=== PATIENT | female | born 1975 | race Caucasian/White ===

== ENCOUNTER 2022-04-28 02:39 | Day surgery (SDC) | payer OTHER, SELFPAY ==
[2022-04-18 14:31] VITALS: BMI 37.1
--- NOTE | 2022-04-18 14:40 | PC.NURSE ---
Report to the Outpatient Waiting Room, entrance under the green pavilion located off [facility], at time 0715 on date 04/28/22. OR Time: 0915. - You and your visitor will be asked a series of questions to screen for COVID 19 for your protection. - Only one visitor is allowed at this time. - The patient visitor is requested to leave or wait in car when not with patient. - A mask is required within the hospital. Patients may have clear liquids (water, carbonated beverages, clear teas, apple juice) until 3 hours prior to surgery with a maximum of 20 ounces. - No food from midnight until time of surgery Take the following medications with a SIP of water the morning of surgery: EFFEXOR Medications to discontinue per physician: VITAMINS/SUPPLEMENTS Date to take last dose: 04/24/22 Please no make-up, nail kenyan, hairspray, perfume, deodorant, or body powder the day of surgery. No jewelry (including any body piercings) or valuables the day of surgery, leave them at home. Please take a shower or bath the night before, or the morning of, surgery with an antibacterial soap. Wear comfortable, loose fitting clothing. - Jewelry must be removed prior to entering the operating room. Rings and piercings that are not removed may be cut off. - The hospital will not accept responsibility for valuables. - Please leave all valuables, including medications, at home the day of surgery. If you are going home after surgery, a licensed driver service technician must drive you home. - NO public transportation without another adult. - We recommend that an adult stay with you for 24 hours following discharge. - We also recommend that you do not drive, make important decision, drink alcoholic beverages, or take any drugs that were not prescribed by your health care provider for at least 24 hours after your discharge time. Follow any additional instructions given to you from your surgeon. If you or anyone in your household have experienced Covid symptoms in the past week, please notify your surgeon or the nurse liaison at the phone number below for possible testing. Telephone instructions given to PT - PORSHA HOWELL and asked if any additional questions and then verbalized understanding. Patient advised to call surgeon office or pre surgery nurse liaison [phone] if any additional questions.
[2022-04-28] VITALS (7 sets, daily range): BP systolic 118–147; BP diastolic 50–90; PULSE 59–96; RESP 12–16; TEMP 36.7–37.2; O2SAT 100; BMI 37.3
--- NOTE | 2022-04-28 07:32 | P.HP_ITS ---
History of Present Illness History of Present Illness Consent: Risks, benefits, and alternatives have been discussed and questions answered. Patient agrees to proceed with procedure. Chief complaint: desires sterilization Narrative: Lourdes Grant is a 46 year old female with completed her childbearing and is requesting permanent sterilization. Plan is to proceed with laparoscopic bilateral tubal ligation with Falope rings. Risks of infection, bleeding, injury to internal organs, and tubal failure with increased ectopic were reviewed. patient's questions were answered. Patient voices understanding and agrees to proceed. Review of Systems Review of Systems: not repeated day of surgery; patient states no changes in status [facility] Past Medical History Medical History (Updated 04/28/22 @ 07:36 by Astrid Rincon MD) Anxiety Depression Hypothyroid prior to gastric sleeve (normal spontaneous vaginal delivery) x2 in 1994 and 1995 Surgical History Surgical History (Updated 04/28/22 @ 07:35 by Astrid Rincon MD) History of x1 in 2006 History of weight loss surgery gastric sleeve 2017 Social History Social History Smoking packs per day: 0.5 Smoking cigarettes per day: 10.0 Years smoked: 20 Smoking pack-years: 10.00 Smoking status: Current every day smoker Tobacco type: cigarettes Alcohol intake: current Drinks per week: 10 Substance use: never Substance use type: does not use Living arrangements: with family Additional living arrangements comments: CHILDREN Spiritual care concerns: No Meds Home Medications and Allergies Home Medications Medication Instructions Recorded Confirmed Type cholecalciferol (vitamin D3) 125 125 mcg PO DAILY 04/18/22 04/18/22 History mcg (5,000 unit) tablet (Vitamin D3) fluticasone propionate 50 1 spray intranasal Q12H 04/18/22 04/18/22 History mcg/actuation nasal spray,suspension levocetirizine 5 mg tablet (Xyzal) 5 mg PO DAILY 04/18/22 04/18/22 History multivitamin 1 tablet PO DAILY 04/18/22 04/18/22 History venlafaxine 150 mg 150 mg PO DAILY 04/18/22 04/18/22 History capsule,extended release 24 hr (Effexor XR) vitamin B complex 1 tablet PO DAILY 04/18/22 04/18/22 History Allergies Allergy/AdvReac Type Severity Reaction Status Date / Time No Known Allergies Allergy Verified 04/18/22 14:27 Exam Const: General: healthy appearing and alert Orientation/consciousness: patient oriented x3 GI: GI Palp: Yes Soft to palpation, No Tenderness to palpation present (GI) and No Palpable mass present : External Female Exam: normal external appearance Speculum Exam - Vagina: normal appearance of the vagina and normal vaginal discharge Speculum Exam - Cervix: normal appearance of the cervix Bimanual exam- vagina & uterus: uterine size normal and consistency normal Bimanual Exam- Adnexa, ot her: normal adnexae and No adnexal tenderness Neuro: General: patient oriented x3 Assessment and Plan Assessment and plan (1) Encounter for sterilization: Code(s): Z30.2 - Encounter for sterilization Status: Acute Assessment and Plan: plan to proceed with laparoscopic bilateral tubal ligation
--- NOTE | 2022-04-28 07:32 | WPDHPUPDATE1 ---
History and Physical Update Update Date/Time: 04/28/22 07:32 History and Physical has been reviewed, including an updated exam of the patient. There are NO changes in the patient's condition. Risks, benefits, and alternatives have been discussed and questions answered. Patient agrees to proceed with procedure.
--- NOTE | 2022-04-28 08:02 | P.PNAN_ITS ---
Anes - Initial Pre Proc Eval Procedure: Operation Date: 04/28/22 09:15 Proposed Procedures p Laparoscopic Bilateral Tubal Ligation with Fallopian Rings - Astrid Rincon MD Date/Time: 04/28/22 08:02 Surgeon: Astrid Rincon MD Pre Op Diagnosis: desires sterilization Patient Data Age: 46 Gender: F Height: 1.68 m Weight: 105.1 kg Last Vital Signs Temp 36.7 C 04/28/22 07:46 Pulse 65 04/28/22 07:46 Resp 16 04/28/22 07:46 BP 118/81 04/28/22 07:46 Pulse Ox 100 04/28/22 07:46 O2 Del Method Room Air 04/28/22 07:46 Allergies Allergy/AdvReac Type Severity Reaction Status Date / Time No Known Allergies Allergy Verified 04/28/22 07:50 Home Medications Medication Instructions Recorded Confirmed Type cholecalciferol (vitamin D3) 125 125 mcg PO DAILY 04/18/22 04/28/22 History mcg (5,000 unit) tablet (Vitamin D3) fluticasone propionate 50 1 spray intranasal Q12H 04/18/22 04/28/22 History mcg/actuation nasal spray,suspension levocetirizine 5 mg tablet (Xyzal) 5 mg PO DAILY 04/18/22 04/28/22 History multivitamin 1 tablet PO DAILY 04/18/22 04/28/22 History venlafaxine 150 mg 150 mg PO DAILY 04/18/22 04/28/22 History capsule,extended release 24 hr (Effexor XR) vitamin B complex 1 tablet PO DAILY 04/18/22 04/28/22 History Patient hx anesthesia problems: none Family hx anesthesia problems: none Results Review: All pre-operative results and documents have been reviewed as part of the pre- operative evaluation. [facility] Past Medical History Medical History Anxiety Depression Hypothyroid prior to gastric sleeve (normal spontaneous vaginal delivery) x2 in 1994 and 1995 Surgical History Surgical History History of x1 in 2006 History of weight loss surgery gastric sleeve 2018 Social History Social History Smoking packs per day: 0.5 Smoking cigarettes per day: 10.0 Years smoked: 20 Smoking pack-years: 10.00 Smoking status: Current every day smoker Tobacco type: cigarettes Alcohol intake: current Drinks per week: 10 Substance use: never Substance use type: does not use Living arrangements: with family Additional living arrangements comments: CHILDREN Spiritual care concerns: No Anes - Eval Final PreProcedure Day of Procedure 04/28/22 08:02 Patient weight: obese Heart: regular rate and rhythm Lungs: clear to auscultation Neurological: alert and oriented Last oral intake: >/= 8 hours ASA classification: III Emergent: no Anesthetic plan: proceed Anesthesia type and monitoring: general ETT and standard monitoring Results Review: All pre-operative results and documents have been reviewed as part of the pre- operative evaluation. Informed Consent: The patient's anesthetic plan and its attendant risks and benefits were discussed with the patient/family/POA. Questions were solicited and answers provided to the satisfaction of the patient/family/POA.
[2022-04-28] MEDS: KETOROLAC 15 MG/ML VIAL (*BKC) IV PUSH (08:04)
[2022-04-28] MEDS: LACTATED RINGERS 1,000 ML 30 ML IV CONT ×2 (08:04→09:42)
[2022-04-28] MEDS: ACETAMINOPHEN 500 MG TABLET 1000 MG PO (08:04)
--- NOTE | 2022-04-28 09:29 | W.PM.PROC2 ---
Procedure Note - Detailed Date of Procedure 04/28/22 Pre-op Diagnosis desires sterilization Post-op Diagnosis Same Procedure Performed Laparoscopic bilateral tubal ligation with Falope rings Surgeon Astrid Rincon MD Anesthesia General Findings Cervix is deep set. Uterus, tubes, and ovaries appear grossly Description of Procedure The patient is taken to the operating room and placed under anesthesia in the dorsal lithotomy position. She was prepped and draped in the usual sterile fashion. [place] speculum was placed in the vagina and the cervix was noted to be very deep. The cervix is barely visible and grasped on the anterior lip with a tenaculum. It is able to be pulled into the speculum. The acorn manipulator was placed. physical laboratory assistant previously drained the bladder with red rubber catheter. The attention was then turned to the abdomen where a vertical skin incision was made at the base of the umbilicus. The abdomen is tented with towel clamps and the Veress needle placed. The short Veress needle was noted to not reach the peritoneum. Long Veress needle was opened and placed and water drop test is normal opening patient pressure was 5mmHg. 5L of CO2 are required to obtain patient pressure of 15mmHg. The Veress needle was then removed and the short trocar placed and noted to not reach peritoneum. The long trocar 5mm placed again while tenting with towel clamps. Intra-abdominal placement was confirmed with the laparoscope. The patient was placed in Trendelenburg and an 8mm skin incision is made at the patient's prior incision. The 8mm trocar was attempted to be placed in this location and was noted to be too short. Approximately 4cm below the incision a transverse 8mm incision is made with a scalpel. While tenting with towel clamps the 8mm trocars placed under direct visualization. The blunt probe was used to bring the tubes into view. The ring applicator is placed and a good loop of tube brought into the applicator and the ring applied to the left tube. Identical procedure was performed on the right side. Picture documentation was taken and all instruments are removed. Pneumoperitoneum was reduced. Skin incisions were closed using 4-0 nylon in an interrupted fashion. Vaginal instruments are removed. Sponge, needle, and instrument counts are correct per the OR staff. Estimated Blood Loss 5 Drains No Packing No Pathology None sent Complications No immediate complications Condition Stable Disposition PACU
[2022-04-28] MEDS: oxyCODONE HCL (*CRX) 5 MG TAB IR PO (10:38)
== END 2022-04-28 11:20 | disposition home or self-care (01) ==
PROVIDERS: Visit Provider Obstetrics & Gynecology Gynecology
PROC: (CPT 58671; principal; 2022-04-28 09:15)
DX: Z30.2 Encounter for sterilization (principal); F41.9 Anxiety disorder, unspecified; F32.A Depression, unspecified; Z98.84 Bariatric surgery status; F17.210 Nicotine dependence, cigarettes, uncomplicated; E66.9 Obesity, unspecified; Z68.37 Body mass index [BMI] 37.0-37.9, adult
CPT/HCPCS: 58671; A4264; A9270; J0330; J1100; J1885; J2250; J2405; J2704; J3010; J7030; J7120

== ENCOUNTER 2023-03-02 01:24 | Day surgery (SDC) | payer OTHER, SELFPAY ==
[2023-02-20 11:40] VITALS: BMI 39.6
--- NOTE | 2023-03-02 08:24 | P.PNAN_ITS ---
Anes - Initial Pre Proc Eval Procedure: Operation Date: 03/02/23 14:00 Proposed Procedures p Screening Colonoscopy - Hever Crowder MD Date/Time: 03/02/23 08:24 Surgeon: Hever Crowder MD Pre Op Diagnosis: neoplasm screening Patient Data Age: 47 Gender: F Height: 1.68 m Weight: 111.3 kg Allergies Allergy/AdvReac Type Severity Reaction Status Date / Time No Known Allergies Allergy Verified 03/02/23 12:04 Home Medications Medication Instructions Recorded Confirmed Type fluticasone propionate 50 1 spray intranasal Q12H 04/18/22 02/20/23 History mcg/actuation nasal spray,suspension levocetirizine 5 mg tablet (Xyzal) 5 mg PO DAILY 04/18/22 02/20/23 History venlafaxine 150 mg 225 mg PO DAILY 04/18/22 02/20/23 History capsule,extended release 24 hr (Effexor XR) ergocalciferol (vitamin D2) 1,250 1,250 mcg PO WEEKLY 02/20/23 02/20/23 History mcg (50,000 unit) capsule Patient hx anesthesia problems: none Family hx anesthesia problems: none Results Review: All pre-operative results and documents have been reviewed as part of the pre- operative evaluation. [facility] Past Medical History Medical History (Updated 03/02/23 @ 13:18 by Hever Crowder MD) Anxiety Colon cancer screening Depression Hyperlipidemia Hypertension Hypothyroid prior to gastric sleeve (normal spontaneous vaginal delivery) x2 in 1994 and 1995 Surgical History Surgical History (Updated 03/02/23 @ 08:24 by Julio Gallegos DO) History of x1 in 2006 History of cholecystectomy History of weight loss surgery gastric sleeve 2018 Social History Social History Smoking packs per day: 0.5 Smoking cigarettes per day: 10.0 Years smoked: 20 Smoking pack-years: 10.00 Smoking status: Former smoker Tobacco type: cigarettes Alcohol intake: current Drinks per week: 10 Substance use: never Substance use type: does not use Living arrangements: with family Additional living arrangements comments: CHILDREN Spiritual care concerns: No Anes - Eval Final PreProcedure Day of Procedure 03/02/23 08:24 Patient weight: obese Heart: regular rate and rhythm Lungs: clear to auscultation Airway: Mallampati scale class II Neurological: alert and oriented Last oral intake: >/= 8 hours ASA classification: III Emergent: no Anesthetic plan: proceed Anesthesia type and monitoring: general GIVS and standard monitoring Results Review: All pre-operative results and documents have been reviewed as part of the pre-operative evaluation. Informed Consent: The patient's anesthetic plan and its attendant risks and benefits were discussed with the patient/family/POA. Questions were solicited and answers provided to the satisfaction of the patient/family/POA.
[2023-03-02 12:05] VITALS: BP 135/78; PULSE 63; RESP 18; TEMP 36.6; O2SAT 100
[2023-03-02] MEDS: LACTATED RINGERS 1,000 ML 150 ML IV CONT (12:07)
--- NOTE | 2023-03-02 13:17 | PM.HPGS ---
History of Present Illness History of Present Illness Consent: Risks, benefits, and alternatives have been discussed and questions answered. Patient agrees to proceed with procedure. Chief complaint: neoplasm screening Narrative: Lourdes Grnat is a 47 year old female here for first screening colonoscopy Review of Systems Constitutional: Constitutional: Denies headache(s) and Denies weakness Eyes: Eyes: Denies blurry vision ENT: Reports Normal hearing present, Denies headache(s) and Denies neck pain Cardiovascular: Cardiovascular: Denies chest pain and Denies dyspnea Respiratory: Respiratory: Denies dyspnea Gastrointestinal: Gastrointestinal: Reports no additional gastrointestinal complaints Genitourinary: Genitourinary: Denies dysuria Musculoskeletal: Musculoskeletal: Denies neck pain Integumentary/Breasts: Skin/Breast: Denies dry skin Neurologic: Reports Normal hearing present, Denies headache(s) and Denies weakness Psychiatric: Psychiatric: Denies anxiety Endocrine: Endocrine: Denies change in body appearance Hematologic/Lymphatic: Hematologic/Lymphatic: Denies easy bleeding Allergic/Immunologic: Allergic/Immunologic: Denies urticaria PMFSH Past Medical History Medical History (Updated 03/02/23 @ 13:18 by Hever Crowder MD) Anxiety Colon cancer screening Depression Hyperlipidemia Hypertension Hypothyroid prior to gastric sleeve (normal spontaneous vaginal delivery) x2 in 1994 and 1995 Surgical History Surgical History (Updated 03/02/23 @ 08:24 by Julio Gallegos DO) History of x1 in 2006 History of cholecystectomy History of weight loss surgery gastric sleeve 2018 Social History Social History Smoking packs per day: 0.5 Smoking cigarettes per day: 10.0 Years smoked: 20 Smoking pack-years: 10.00 Smoking status: Former smoker Tobacco type: cigarettes Alcohol intake: current Drinks per week: 10 Substance use: never Substance use type: does not use Living arrangements: with family Additional living arrangements comments: CHILDREN Spiritual care concerns: No Meds Home Medications and Allergies Home Medications Medication Instructions Recorded Confirmed Type fluticasone propionate 50 1 spray intranasal Q12H 04/18/22 02/20/23 History mcg/actuation nasal spray,suspension levocetirizine 5 mg tablet (Xyzal) 5 mg PO DAILY 04/18/22 02/20/23 History venlafaxine 150 mg 225 mg PO DAILY 04/18/22 02/20/23 History capsule,extended release 24 hr (Effexor XR) ergocalciferol (vitamin D2) 1,250 1,250 mcg PO WEEKLY 02/20/23 02/20/23 History mcg (50,000 unit) capsule Allergies Allergy/AdvReac Type Severity Reaction Status Date / Time No Known Allergies Allergy Verified 03/02/23 12:04 Vital Signs Vital Signs - 24 hr 03/02/23 12:05 Temperature 97.8 F Pulse Rate 63 Respiratory Rate 18 Blood Pressure 135/78 Pulse Oximetry 100 Oxygen Delivery Room Air Exam Const: General: comfortable and no acute distress HENMT: Face/Nose/Sinus: Normal nares present Eyes: General: appearance normal, both eyes and all related structures Neck: Neck: no JVD Resp: Auscultation: clear to auscultation bilaterally Cardio: Rate: regular rate Rhythm: regular rhythm GI: Inspection: non-distended GI Palp: Yes Soft to palpation Skin: General skin exam: normal color Neuro: General: gait normal Speech: normal speech Extrem: General: normal to inspection Psych: Mental Status: mental status grossly normal Assessment and Plan Assessment and plan (1) Colon cancer screening: Code(s): Z12.11 - Encounter for screening for malignant neoplasm of colon Status: Acute Assessment and Plan: colonoscopy
[2023-03-02 13:37] VITALS: BP 122/71; PULSE 65; RESP 11; O2SAT 100
[2023-03-02 13:47] VITALS: BP 138/86; PULSE 63; RESP 15; O2SAT 100
[2023-03-02 13:57] VITALS: BP 123/75; PULSE 61; RESP 15; O2SAT 100
== END 2023-03-02 14:10 | disposition home or self-care (01) ==
PROVIDERS: PCP Nurse Practitioner; Visit Provider Internal Medicine Gastroenterology
PROC: 0DJD8ZZ Inspection of Lower Intestinal Tract, Via Natural or Artificial Opening Endoscopic (ICD-10-PCS; CPT 45378; principal; 2023-03-02 14:00)
DX: Z12.11 Encounter for screening for malignant neoplasm of colon (principal); D12.5 Benign neoplasm of sigmoid colon; K64.8 Other hemorrhoids; F41.9 Anxiety disorder, unspecified; F32.A Depression, unspecified; Z98.84 Bariatric surgery status; Z87.891 Personal history of nicotine dependence; E66.9 Obesity, unspecified; Z68.41 Body mass index [BMI] 40.0-44.9, adult
CPT/HCPCS: 45385; 88305; J2704; J7120